=== PATIENT | male | born 1985 | race Caucasian/White ===

== ENCOUNTER 2016-04-07 08:40 | Emergency (ER) | payer MEDICAID ==
[~2016-04-07] VITALS: Ht 182.9 cm; Wt 85.0 kg
[2016-04-07 08:41] VITALS: Ht 182.9 cm; Wt 85.0 kg
[2016-04-07] MEDS ORDERED: KETOROLAC 30 MG INJ IM STA (09:24)
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
[2016-04-07 11:35] LABS: ADD SCAN DIFF NO
[2016-04-07 11:39] LABS: BASOPHIL # 0.1 10^3/ul (0.0-0.1); BASOPHILS % 0.5 % (0.0-2.0); EOSINOPHILS % 0.4 % (0.0-7.0); HEMATOCRIT 43.7 % (42.0-52.0); HEMOGLOBIN 15.7 g/dl (14.0-18.0); LYMPHOCYTES # 2.8 10^3/ul (0.8-2.9); LYMPHOCYTES % 25.5 % (15.0-51.0); MEAN CORPUSCULAR HEMOGLOBIN 31.7 pg (29.0-33.0); MEAN CORPUSCULAR HGB CONC 35.9 g/dl (32.0-37.0); MEAN CORPUSCULAR VOLUME 88.3 fl (82.0-101.0); MEAN PLATELET VOLUME 9.2 fl (7.4-10.4); MONOCYTE # 0.5 10^3/ul (0.3-0.9); MONOCYTES % 4.9 % (0.0-11.0); NEUTROPHIL # 7.6 10^3/ul (1.6-7.5); NEUTROPHILS % 68.2 % (39.0-77.0); PLATELET COUNT 291 10^3/UL (140-415); RED BLOOD COUNT 4.95 10^6/ul (4.70-6.10); RED CELL DISTRIBUTION WIDTH 11.7 % (11.5-14.5); WHITE BLOOD COUNT 11.1 10^3/ul (4.8-10.8)
[2016-04-07 11:46] LABS: ALBUMIN 4.7 g/dl (3.3-4.9)
[2016-04-07 11:46] LABS: URINE BLOOD (Dip) POC Negative (NEGATIVE)
[2016-04-07 11:47] LABS: POTASSIUM 3.9 mmol/L (3.5-5.1)
[2016-04-07 11:49] LABS: ALBUMIN/GLOBULIN RATIO 1.95; BILIRUBIN,INDIRECT 0.4 mg/dl (0-1.1); BILIRUBIN,TOTAL 0.4 mg/dl (0.2-1.3); CREATININE 0.78 mg/dl (0.61-1.24); TOTAL PROTEIN 7.1 g/dl (6.1-8.1)
[2016-04-07 11:50] LABS: CALCIUM 9.5 mg/dl (8.4-10.2)
[2016-04-07] MEDS ORDERED: IBUP400T22 PO (12:21)
[2016-04-07] MEDS ORDERED: HYDR-906 PO (12:21)
== END 2016-04-07 12:34 | disposition home or self-care (01) ==
LOC: FTE 08:40
DX: S39.91XA Unspecified injury of abdomen, initial encounter (principal); F17.210 Nicotine dependence, cigarettes, uncomplicated; R06.02 Shortness of breath; V49.40XA Driver injured in collision with unspecified motor vehicles in traffic accident, initial encounter
CPT/HCPCS: 71010; 74176; 80053; 81003; 85025; 96372; J1885; Z7502